=== PATIENT | male | born 1945 | race Caucasian/White ===

== ENCOUNTER 2017-07-01 15:43 | Emergency (ER) | payer BC, OTHER ==
[2017-07-01] MEDS: HYDROCODONE/APAP (5/325) TAB PO (17:16)
== END 2017-07-01 18:53 | disposition home or self-care (01) ==
LOC: FTE 15:43
DX: S39.92XA Unspecified injury of lower back, initial encounter (principal); R07.9 Chest pain, unspecified; V49.50XA Passenger injured in collision with unspecified motor vehicles in traffic accident, initial encounter
CPT/HCPCS: 71045; 99284-25